=== PATIENT | female | born 1980 ===

== ENCOUNTER 2018-02-26 10:51 | Outpatient (CLI) | payer OTHER | END 2018-02-26 10:52 | disposition home or self-care (01) | LOC: BICMRI 10:51 | PROVIDERS: ATTEND Specialist | DX: D24.2 Benign neoplasm of left breast (principal); D24.1 Benign neoplasm of right breast; N60.11 Diffuse cystic mastopathy of right breast; N60.12 Diffuse cystic mastopathy of left breast | CPT/HCPCS: C8908 ==